=== PATIENT | female | born 1990 | race Caucasian/White ===

== ENCOUNTER 2016-08-08 08:48 | Outpatient (CLI) | payer MEDICAID ==
--- NOTE | 2016-08-08 09:38 | Ultrasound Report ---
ULTRASOUND ABDOMEN LIMITED INDICATION: with right upper quadrant pain. COMPARISON: None similar at this institution. FINDINGS: Right upper quadrant ultrasound suggests normal hepatic contours with slight diffuse nonspecific coarsening. No focal suspicious lesions or biliary dilatation. Small non-shadowing echogenicities near the gallbladder neck measuring up to 3 mm, possibly polyps versus small stones. Mild gallbladder sludge. Gallbladder wall thickness is 2.4 mm. No pericholecystic fluid or positive sonographic Villeda's sign. Common bile duct is 3 mm. Visualized pancreas, IVC and aorta within normal limits. Nonhydronephrotic right kidney, though with top normal cortical echogenicity. Right kidney grossly 9.6 x 4.6 x 5.1 cm with cortical thickness of 1.7 cm, though its lower pole partly obscured due to bowel gas. CONCLUSION: No acute right upper quadrant sonographic abnormality, though mild gallbladder sludge and small polyps or gallstones, slightly coarse liver and top normal right renal cortical echogenicity noted, as described. Please correlate. Thank you for the opportunity to participate in this patient's care.
== END 2016-08-08 08:49 | disposition home or self-care (01) ==
LOC: US 08:48
PROVIDERS: ATTEND Obstetrics & Gynecology
DX: O21.9 Vomiting of pregnancy, unspecified (principal); O99.613 Diseases of the digestive system complicating pregnancy, third trimester; K80.20 Calculus of gallbladder without cholecystitis without obstruction; O26.893 Other specified pregnancy related conditions, third trimester; M79.604 Pain in right leg; R10.11 Right upper quadrant pain; K82.8 Other specified diseases of gallbladder; Z3A.37 37 weeks gestation of pregnancy
CPT/HCPCS: 76705

== ENCOUNTER 2016-08-08 10:17 | Outpatient (CLI) | payer MEDICAID ==
[2016-08-08 11:51] VITALS: BP 100/72
--- NOTE | 2016-08-08 14:21 | Ultrasound Report ---
BIOPHYSICAL PROFILE: INDICATION: Decreased movement. COMPARISON: None similar. TECHNIQUE: Transabdominal ultrasound with Doppler interrogation. 2 - breathing movements 2 - movements 2 - posture and tone 2 - Qualitative amniotic fluid volume 8 - TOTAL SCORE OF POSSIBLE 8 Heart Rate (bpm) 140
== END 2016-08-08 12:34 | disposition home or self-care (01) ==
LOC: TRG 10:17
PROVIDERS: ATTEND Obstetrics & Gynecology
DX: O36.8130 Decreased fetal movements, third trimester, not applicable or unspecified (principal); O47.1 False labor at or after 37 completed weeks of gestation; Z3A.37 37 weeks gestation of pregnancy
CPT/HCPCS: 59025; 76819

== ENCOUNTER 2016-08-12 21:11 | Inpatient (IN) | payer MEDICAID ==
[2016-08-12] MEDS ORDERED: XYLOCAINE 2% INFILTRATI ONE ×2 (21:26→22:50)
[2016-08-12] MEDS ORDERED: PITOCin/NS 20 UNIT/1000ML DRIP 20,000 MILLIUNITS/1,000 ML BAG IV ONE (21:26)
[2016-08-12] MEDS ORDERED: LACTATED RINGERS 1,000 ML ONE (21:26)
[2016-08-12] MEDS ORDERED: PITOCin/NS 30 UNIT/500ML 30,000 MILLIUNITS/500 ML BAG IV ONE (22:01)
[2016-08-12] MEDS ORDERED: SUBLIMAZE ONE (22:15)
[2016-08-12] MEDS ORDERED: SUBLIMAZE IV ONE (22:17)
[2016-08-12] MEDS ORDERED: NARCAN 0.4 MG/1 ML IV PRN (22:50)
[2016-08-12] MEDS ORDERED: MINERAL OIL PO PRN (22:50)
[2016-08-12] MEDS ORDERED: BRETHINE IVP PRN (22:50)
[2016-08-12] MEDS ORDERED: ePHEDrine SULFATE IV PRN (22:50)
[2016-08-12] MEDS ORDERED: ZOFRAN IV PRN (22:50)
[2016-08-12] MEDS ORDERED: BRETHINE SUB-Q PRN (22:50)
--- NOTE | 2016-08-12 22:57 | History and Physical Report ---
History of Present Illness Date of examination: 08/12/16 Date of admission: 08/12/16 21:22 Chief complaint: contractions, leakage of fluid, vaginal bleeding History of present illness: Pt is a 25 year old female primigravida ELIANE 08/27/16 at 37w6d who presents with contractions since 11 am, rupture of membranes at 2030 pm and vaginal bleeding. Upon entry into triage, she was noted to be completely dilated. She has had care at [facility] since transfer into care at 24 wks complicated by gallbladder sludge with nausea and vomiting, constipation, and generalized anxiety. Her GBS status is negative. Past History Past Medical History: other (Glaucoma ) Past Surgical History: no surgical history Family/Genetic History: diabetes, hypertension Social history: no significant social history, - Obstetrical History Expected Date of Delivery: 08/27/16 Actual Gestation: 37 Week(s) 6 Day(s) : 1 Medications and Allergies Allergies Allergy/AdvReac Type Severity Reaction Status Date / Time No Known Allergies Allergy Verified 08/08/16 10:32 Home Medications Medication Instructions Recorded Confirmed Last Taken Type Doxylamine/Pyridoxine HCl 1 each PO DAILY 08/08/16 08/08/16 08/08/16 00:00 History [Diclegis Dr 10-10 mg Tablet] Ferrous Sulfate [Ferrous Sulfate] 1 tab PO BID 08/08/16 08/08/16 08/07/16 14:00 History Pnv with Ca,No.72/Iron/FA [Pnv 1 tab PO DAILY 08/08/16 08/08/16 08/07/16 14:00 History Plus Multivit Tab] Sennosides/Docusate [Senokot S] 1 tab PO DAILY 08/08/16 08/08/16 08/07/16 14:00 History 1 Active Meds: Active Medications Lactated Ringer's (Lactated Ringers) 1,000 mls @ 125 mls/hr IV DIRECT ABY Oxytocin/Sodium Chloride (Pitocin/Ns 20 Unit/1000ml Drip) 20 units in 1,000 mls @ 0 mls/hr IV DIRECT ABY PRN Reason: As Directed Oxytocin/Sodium Chloride (Pitocin/Ns 30 Unit/500ml) 30 units in 500 mls @ 6 mls /hr IV TITR ABY PRN Reason: Protocol Review of Systems All systems: negative - Vital Signs Vital signs: Vital Signs Pulse BP Pulse Ox 92 H 114/78 99 08/12/16 21:29 08/12/16 21:29 08/12/16 21:29 Temp Pulse Resp BP Pulse Ox 96 H 87/44 98 08/12/16 22:28 08/12/16 22:28 08/12/16 22:14 - Physical Exam Breasts: Positive: deferred Cardiovascular: Regular rate Lungs: Positive: Clear to auscultation Abdomen: Positive: soft (gravid ) Uterus: Positive: enlarged (gravid ) Extremities: Positive: normal - Obstetrical FHR: category 2 Uterine Contraction Monitor Mode: External Cervical Dilatation: 10 Cervical Effacement Percentage: 100 station: +1 Uterine Contraction Pattern: Irregular Uterine Tone Measurement Phase: Resting Uterine Contraction Intensity: Strong/Firm Results All other labs normal. Assessment and Plan A: IUP at 37w6d Second stage labor Thick meconium GBS negative P: Admit to labor and delivery. Routine intrapartum care. Anticipate vaginal delivery.
[2016-08-12] MEDS ORDERED: PITOCin/NS 30 UNIT/500ML 30 UNITS/500 ML BAG IV SCH ×2 (23:00)
[2016-08-12] MEDS ORDERED: PITOCin/NS 20 UNIT/1000ML DRIP 20 UNITS/1,000 ML BAG IV SCH ×2 (23:00)
[2016-08-12] MEDS ORDERED: LACTATED RINGERS 1,000 ML IV SCH ×2 (23:00)
--- NOTE | 2016-08-12 23:04 | Procedure Note ---
OB Delivery Note - Delivery Date of Delivery: 08/12/16 Surgeon: HENRIQUE LO Estimated blood loss: other (400 mL) - Vaginal Delivery presentation: vertex Delivery position: OA Intrapartum events: PROM->1hr before delivery, meconium, mult.variable deceleratio Delivery induction: none Delivery augmentation: pitocin Delivery monitor: external FHT, external uterine Route of delivery: vacuum extraction Indicators for instrumentation: nonreassuring FHR tracing Delivery placenta: spontaneous Delivery cord: nuchal cord (loose), 3 umbilical vessels Episiotomy: none Delivery laceration: 2nd degree, other (bilateral periurethral ) Delivery repair: vicryl Anesthesia: local, intravenous Delivery comments: Pt progressed to complete/complete/+3 station and commenced pushing. FHTs were in the 80s with poor maternal pushing efforts. head position was noted to be NORRIS and the head was visible between the labia. Kiwi vacuum was used with three pulls, two pop offs to deliver the head then the vacuum was disengaged. Loose nuchal cord was reduced. Shoulders and body delivered easily. placed on maternal abdomen. Cord clamped and cut and handed to respiratory staff in attendance for meconium. Cord blood collected. Placenta delivered spontaneously (3VC, intact). Vaginal and perineum explored. A second degree perineal laceration and bilateral periurethral lacerations were repaired with 2-0 and 3-0 Vicryl respectively with red rubber catheter in the urethra. EBL 400 mL. - A at 1 minute: 8 at 5 minutes: 9 Infant Gender: Male (2585g (5lb 11oz))
[2016-08-12 23:28] LABS: Hematocrit 38.9 % (30.3-42.9); Mean Corpuscular HGB Conc 31 % (30-34); Mean Corpuscular Volume 71 fl (79-97); Platelet Count 276 K/mm3 (140-440); Red Blood Count 5.47 M/mm3 (3.65-5.03); Red Cell Distribution Width 14.8 % (13.2-15.2)
[2016-08-12 23:45] LABS: Mean Corpuscular Hemoglobin 22 pg (28-32); White Blood Count 21.2 K/mm3 (4.5-11.0)
[2016-08-13] MEDS ORDERED: PITOCin/NS 20 UNIT/1000ML DRIP 20 UNITS/1,000 ML BAG IV SCH (00:53)
[2016-08-13] MEDS ORDERED: PHENERGAN PR PRN (00:53)
[2016-08-13] MEDS ORDERED: BENADRYL PO PRN (00:53)
[2016-08-13] MEDS ORDERED: LANSINOH TP PRN (00:53)
[2016-08-13] MEDS ORDERED: ZOFRAN IV PRN (00:53)
[2016-08-13] MEDS ORDERED: SODIUM CHLORIDE FLUSH SYRINGE 10 ML IV NR (00:53)
[2016-08-13] MEDS ORDERED: PHENERGAN PO PRN (00:53)
[2016-08-13] MEDS ORDERED: TYLENOL PO PRN (00:53)
[2016-08-13] MEDS ORDERED: MILK OF MAGNESIA PO PRN (00:53)
[2016-08-13] MEDS ORDERED: DULCOLAX PR PRN (00:53)
[2016-08-13] MEDS: DERMOPLAST TP PRN ×2 (01:05→18:15)
[2016-08-13] MEDS: TUCKS PAD TP PRN ×2 (01:05→18:15)
[2016-08-13] MEDS: MOTRIN PO SCH ×5 (01:06→23:09)
[2016-08-13] MEDS ORDERED: BOOSTRIX IM ONE (06:00)
[2016-08-13] MEDS ORDERED: M-M-R II VACCINE SUB-Q ONE (06:00)
--- NOTE | 2016-08-13 10:49 | Progress Note ---
Assessment and Plan A: PPD#1 s/p at term P: Routine care. Anticipate discharge tomorrow with follow up in [address] Loyola. Subjective - Subjective Date of service: 08/13/16 Principal diagnosis: s/p at term Interval history: No overnight complaints. Pt anxious about having a bowel movement given her perineal tear. Reassurance given. Patient reports: appetite normal, voiding normally, pain well controlled, ambulating normally, no nauseated : doing well Objective - Vital Signs Latest vital signs: Vital Signs Temp Pulse Pulse Resp BP BP Pulse Ox 08/13/16 09:00 98.3 F 73 18 100/61 08/13/16 04:30 98.6 F 76 16 99/77 08/13/16 00:30 98.6 F 78 16 98/75 08/12/16 23:56 83 101/64 08/12/16 23:28 84 124/69 08/12/16 23:13 93 H 111/63 08/12/16 23:01 88 108/62 08/12/16 22:59 89 107/62 08/12/16 22:58 98.9 F 85 20 100/58 100/58 08/12/16 22:28 96 H 87/44 08/12/16 22:14 89 98 08/12/16 22:13 95 H 108/56 08/12/16 22:09 116 H 100 08/12/16 22:04 88 99 08/12/16 21:59 97 H 99 08/12/16 21:54 85 99 08/12/16 21:49 76 99 08/12/16 21:44 75 96 08/12/16 21:39 80 100 08/12/16 21:34 77 99 08/12/16 21:29 92 H 114/78 99 Intake and Output 08/12/16 08/13/16 08/13/16 22:59 06:59 14:59 Intake Total 1225 240 Output Total 400 Balance 825 240 Intake: IV 125 PITOCin/NS 20 UNIT/1000ML 125 DRIP 20 units In 1,000 ml @ 125 mls/hr IV DIRECT ABY Rx#:[id number] Oral 400 240 Intake, Free Water 700 Output: Urine 400 Void 400 Other: Total, Intake Amount 400 240 Total, Output Amount 400 # Voids Void 1 1 Weight 77.111 kg Estimated Blood Loss 400 - Exam Breasts: Present: deferred Cardiovascular: Present: Regular rate Lungs: Present: Clear to auscultation Abdomen: Present: soft Uterus: Present: fundal height below umbilicus Extremities: Present: normal - Labs Labs: Abnormal lab results 08/12/16 Range/Units 21:40 WBC 21.2 H (4.5-11.0) K/mm3 RBC 5.47 H (3.65-5.03) M/mm3 MCV 71 L (79-97) fl MCH 22 L (28-32) pg
--- NOTE | 2016-08-13 10:50 | Discharge Summary ---
Providers - Providers Date of Admission: 08/12/16 21:22 Date of discharge: 08/14/16 Attending physician: HENRIQUE LOYOLA 08/13/16 00:53 Consult to Acid Maker [CONS] Routine Reason For Exam: assistance with , SNS Primary care physician: HENRIQUE LOYOLA Hospitalization Reason for admission: active labor Delivery: vacuum extraction Procedure details: Please see delivery note. Episiotomy: none Laceration: 2nd degree, other (bilateral periurethral ) Other procedures: none complications: none Discharge diagnosis: IUP at term delivered [place] baby: male Hospital course: Patient underwent a vacuum extraction which she tolerated well. Her course uncomplicated and she met discharge criteria on day #2. She will follow up in the office with Dr. Loyola in 2 weeks. Condition at discharge: Stable Disposition: DISCHARGED TO HOME OR SELFCARE - Discharge Diagnoses (1) Term of male Status: Acute Plan - Discharge Medications Prescriptions: Docusate Sodium [Colace] 100 mg PO BID PRN #60 capsule PRN Reason: Constipation HYDROcodone/APAP 5-325 [[place] 5/325] 1 each PO Q6HR PRN #40 tablet PRN Reason: Pain Ibuprofen [Motrin] 600 mg PO Q6H PRN #30 tablet PRN Reason: Pain Vit-Fe Fumar-FA [ Vitamin] 1 tab PO QDAY #30 tablet - Provider Discharge Summary Activity: routine, no sex for 6 weeks, no heavy lifting 4 weeks, no strenuous exercise Diet: routine Instructions: routine Additional instructions: [] Smoking cessation referral if applicable(refer to patient education folder for contact #) [] Refer to [facility]'s [facility] Booklet Call your doctor immediately for: * Fever > 100.5 * Heavy vaginal bleeding ( >1 pad per hour) * Severe persistent headache * Shortness of breath * Reddened, hot, painful area to leg or breast * Drainage or odor from incision. * Keep incision clean and dry at all times and follow doctor's instructions regarding bathing/showering - Follow up plan Follow up: HENRIQUE LOYOLA MD [Primary Care Provider] - 08/29/16 ( exam )
[2016-08-13 10:56] LABS: Hemoglobin 9.9 gm/dl (10.1-14.3)
[2016-08-13] MEDS: PRENATAL VITAMIN PO SCH (11:35)
[2016-08-13] MEDS: FEOSOL PO SCH ×2 (11:35→23:10)
[2016-08-13] MEDS: COLACE PO SCH ×2 (13:06→23:10)
[2016-08-13] MEDS: PERCOCET 5/325 PO PRN ×2 (13:06→18:35)
[2016-08-14] MEDS: MOTRIN PO SCH ×2 (05:25→13:06)
[2016-08-14] MEDS: PERCOCET 5/325 PO PRN (09:40)
[2016-08-14] MEDS: PRENATAL VITAMIN PO SCH (09:42)
[2016-08-14] MEDS: COLACE PO SCH (09:42)
[2016-08-14] MEDS: FEOSOL PO SCH (09:43)
[2016-08-14] MEDS: TUCKS PAD TP PRN (14:13)
[2016-08-14] MEDS: DERMOPLAST TP PRN (14:22)
[2016-08-14 15:45] VITALS: BP 93/59
== END 2016-08-14 15:40 | disposition home or self-care (01) | DRG 775 ==
LOC: TRG 21:11 → LD 21:22 → OB 08-13 00:25
PROVIDERS: ADMIT Obstetrics & Gynecology; ATTEND Obstetrics & Gynecology
PROC: 10D07Z6 Extraction of Products of Conception, Vacuum, Via Natural or Artificial Opening (ICD-10-PCS; principal; 2016-08-12)
PROC: 0KQM0ZZ Repair Perineum Muscle, Open Approach (ICD-10-PCS; 2016-08-12)
DX: O77.0 Labor and delivery complicated by meconium in amniotic fluid (principal); O70.1 Second degree perineal laceration during delivery; Z82.49 Family history of ischemic heart disease and other diseases of the circulatory system; Z83.3 Family history of diabetes mellitus; O69.81X0 Labor and delivery complicated by cord around neck, without compression, not applicable or unspecified; O76 Abnormality in fetal heart rate and rhythm complicating labor and delivery; Z3A.37 37 weeks gestation of pregnancy; Z37.0 Single live birth; O99.340 Other mental disorders complicating pregnancy, unspecified trimester; O21.9 Vomiting of pregnancy, unspecified; F41.9 Anxiety disorder, unspecified
CPT/HCPCS: 36415; 59025; 76705; 76819; 85014; 85018; 85027; 86850; 86900; 86901; 90471; 90715; A6250; J2590; J3010; J7120

== ENCOUNTER 2018-01-12 12:30 | Emergency (ER) | payer MEDICAID ==
[2018-01-12 13:12] VITALS: BP 98/61
== END 2018-01-12 16:15 | disposition left against medical advice (07) ==
LOC: ED 12:30
DX: M54.2 Cervicalgia (principal); Z53.21 Procedure and treatment not carried out due to patient leaving prior to being seen by health care provider

== ENCOUNTER 2018-07-19 17:29 | Emergency (ER) | payer MEDICAID, OTHER ==
--- NOTE | 2018-07-19 17:49 | Emergency Department Report ---
Blank Doc - Documentation Documentation: This is a 27-year-old that is about 4 weeks presents with nausea and vomiting. Denies any vaginal bleeding or pelvic/abdominal pain. Denies any other symptoms or complains, This initial assessment/diagnostic orders/clinical plan/treatment(s) is/are subject to change based on patient's health status, clinical progression and re- assessment by fellow clinical providers in the ED. Further treatment and workup at subsequent clinical providers discretion. Patient/guardians urged not to elope from the ED as their condition may be serious if not clinically assessed and managed. Initial orders include: 1- Patient sent to [facility] for further evaluation and treatment 2-labs
[2018-07-19 18:41] LABS: Basophils % (Auto) 0.3 % (0.0-1.8); Eosinophils # (Auto) 0.1 K/mm3 (0.0-0.4); Eosinophils % (Auto) 0.4 % (0.0-4.3); Hematocrit 39.2 % (30.3-42.9); Hemoglobin 12.3 gm/dl (10.1-14.3); Lymphocytes # (Auto) 2.1 K/mm3 (1.2-5.4); Lymphocytes % (Auto) 14.9 % (13.4-35.0); Mean Corpuscular HGB Conc 31 % (30-34); Mean Corpuscular Volume 71 fl (79-97); Monocytes # (Auto) 0.8 K/mm3 (0.0-0.8); Monocytes % (Auto) 5.9 % (0.0-7.3); Platelet Count 337 K/mm3 (140-440); Red Blood Count 5.51 M/mm3 (3.65-5.03); Red Cell Distribution Width 14.4 % (13.2-15.2)
[2018-07-19 19:16] LABS: BUN/Creatinine Ratio 20; Blood Urea Nitrogen 8 mg/dL (7-17); Calcium 9.7 mg/dL (8.4-10.2); Hemolysis Index 0
[2018-07-19] MEDS ORDERED: NACL 0.9% 1000 ML 1,000 ML IV ONE ×2 (20:58→23:35)
[2018-07-19] MEDS ORDERED: REGLAN IV ONE (20:59)
[2018-07-19] MEDS ORDERED: BENADRYL IV ONE (20:59)
[2018-07-19] MEDS ORDERED: ZOFRAN IV STA (23:06)
[2018-07-19] MEDS: VITAMIN B-6 PO SCH (23:50)
[2018-07-20 00:15] LABS: Bilirubin,Urine NEG (Negative); Blood,Urine MOD (Negative); Mucus,Urine 3+ /HPF
[2018-07-20 00:17] LABS: Color,Urine Dark Yellow (Yellow)
[2018-07-20 00:19] LABS: HCG Qualitative,Urine Positive (Negative)
[2018-07-20] MEDS: VITAMIN B-6 PO SCH (01:15)
--- NOTE | 2018-07-20 02:17 | Emergency Department Report ---
ED General Adult HPI - General Chief complaint: Nausea/Vomiting/Diarrhea Stated complaint: VOMIT/NAUSEA Time Seen by Provider: 07/19/18 17:48 Source: patient Mode of arrival: Ambulatory Limitations: No Limitations - History of Present Illness Initial comments: 27-year-old female 4 weeks presents emergency department complaining of a four-day history of non-improving, nausea, vomiting, associated with some occasional crampy sensation to that. No fever, chills, sweats, chest pain, palpitations, shortness of breath or dysuria. She reports no significant past medical history is taken no significant medications and denies any trauma. Location: mouth Radiation: non-radiation Severity scale (0 -10): 6 Improves with: none, immobilization Associated Symptoms: denies: chest pain, cough, diaphoresis, loss of appetite, malaise, nausea/vomiting, shortness of breath, syncope - Related Data Home Medications Medication Instructions Recorded Confirmed Last Taken Doxylamine Succinate/Vit B6 1 each PO DAILY 08/08/16 08/13/16 08/08/16 00:00 [Jill Dr 10-10 mg Tablet] Ferrous Sulfate 1 tab PO BID 08/08/16 08/13/16 08/12/16 Pnv,Calcium 72/Iron/Folic Acid 1 tab PO DAILY 08/08/16 08/13/16 08/12/16 [Pnv Plus Multivit Tab] Sennosides/Docusate [Senokot S] 1 tab PO DAILY 08/08/16 08/13/16 08/12/16 Previous Rx's Medication Instructions Recorded Last Taken Type Docusate Sodium [Colace] 100 mg PO BID PRN #60 capsule 08/13/16 Unknown Rx HYDROcodone/APAP 5-325 [[place] 1 each PO Q6HR PRN #40 tablet 08/13/16 Unknown Rx 5/325] Ibuprofen [Motrin] 600 mg PO Q6H PRN #30 tablet 08/13/16 Unknown Rx Vit-Fe Fumar-FA [ 1 tab PO QDAY #30 tablet 08/13/16 Unknown Rx Vitamin] Ferrous Sulfate [Feosol 325 MG tab] 325 mg PO BID #60 tablet 08/14/16 Unknown Rx Dicyclomine [Bentyl] 10 mg PO QID PRN #40 capsule 02/05/18 Unknown Rx Naproxen [Naprosyn TAB] 500 mg PO BID PRN #30 tablet 02/05/18 Unknown Rx Doxylamine Succinate/Vit B6 1 each PO BID PRN #20 tablet. 07/20/18 Unknown Rx [Jill Roche 10-10 mg Tablet] Allergies Allergy/AdvReac Type Severity Reaction Status Date / Time No Known Allergies Allergy Verified 01/12/18 13:09 ED Review of Systems ROS: Stated complaint: VOMIT/NAUSEA Other details as noted in HPI Constitutional: denies: chills, fever Eyes: denies: eye pain, eye discharge, vision change ENT: denies: ear pain, throat pain Respiratory: denies: cough, shortness of breath, wheezing Cardiovascular: denies: chest pain, palpitations Endocrine: no symptoms reported Gastrointestinal: nausea, vomiting. denies: abdominal pain, diarrhea, constipation, hematemesis Genitourinary: denies: urgency, dysuria, hematuria, discharge, dyspareunia Musculoskeletal: denies: back pain, joint swelling, arthralgia Skin: denies: rash, lesions Neurological: denies: headache, weakness, paresthesias Psychiatric: denies: anxiety, depression Hematological/Lymphatic: denies: easy bleeding, easy bruising ED Past Medical Hx - Past Medical History Previous Medical History?: No Hx Hypertension: No Hx Diabetes: No Hx Deep Vein Thrombosis: No Hx Renal Disease: No Hx Sickle Cell Disease: No Hx Seizures: No Hx Asthma: No Hx COPD: No Hx HIV: No - Surgical History Past Surgical History?: No - Social History Smoking Status: Never Smoker Substance Use Type: None - Medications Home Medications: Home Medications Medication Instructions Recorded Confirmed Last Taken Type Doxylamine Succinate/Vit B6 1 each PO DAILY 08/08/16 08/13/16 08/08/16 00:00 History [Jill Roche 10-10 mg Tablet] Ferrous Sulfate 1 tab PO BID 08/08/16 08/13/16 08/12/16 History Pnv,Calcium 72/Iron/Folic Acid 1 tab PO DAILY 08/08/16 08/13/16 08/12/16 History [Pnv Plus Multivit Tab] Sennosides/Docusate [Senokot S] 1 tab PO DAILY 08/08/16 08/13/16 08/12/16 History Docusate Sodium [Colace] 100 mg PO BID PRN #60 capsule 08/13/16 Unknown Rx HYDROcodone/APAP 5-325 [[place] 1 each PO Q6HR PRN #40 tablet 08/13/16 Unknown Rx 5/325] Ibuprofen [Motrin] 600 mg PO Q6H PRN #30 tablet 08/13/16 Unknown Rx Vit-Fe Fumar-FA [ 1 tab PO QDAY #30 tablet 08/13/16 Unknown Rx Vitamin] Ferrous Sulfate [Feosol 325 MG tab] 325 mg PO BID #60 tablet 08/14/16 Unknown Rx Dicyclomine [Bentyl] 10 mg PO QID PRN #40 capsule 02/05/18 Unknown Rx Naproxen [Naprosyn TAB] 500 mg PO BID PRN #30 tablet 02/05/18 Unknown Rx Doxylamine Succinate/Vit B6 1 each PO BID PRN #20 tablet. 07/20/18 Unknown Rx [Dicmaribelginuno Dr 10-10 mg Tablet] ED Physical Exam - General Limitations: No Limitations General appearance: alert, in no apparent distress - Head Head exam: Present: atraumatic, normocephalic - Eye Eye exam: Present: normal appearance, PERRL, EOMI Pupils: Present: normal accommodation - ENT ENT exam: Present: normal exam, mucous membranes moist - Neck Neck exam: Present: normal inspection, full ROM - Respiratory Respiratory exam: Present: normal lung sounds bilaterally. Absent: respiratory distress, rales, stridor - Cardiovascular Cardiovascular Exam: Present: regular rate, normal rhythm. Absent: systolic murmur, diastolic murmur, rubs, gallop - GI/Abdominal GI/Abdominal exam: Present: soft, normal bowel sounds - External exam: Present: normal external exam Speculum exam: Present: vaginal discharge Bi-manual exam: Present: normal bi-manual exam, other (charge nurse, maribell chaperoned during The pelvic examination) - Extremities Exam Extremities exam: Present: normal inspection, full ROM, normal capillary refill - Back Exam Back exam: Present: normal inspection - Neurological Exam Neurological exam: Present: alert, oriented X3 - Psychiatric Psychiatric exam: Present: normal affect, normal mood - Skin Skin exam: Present: warm, dry, intact, normal color. Absent: rash ED Course Vital Signs 07/19/18 07/19/18 17:49 22:28 Temperature 98.2 F 98.4 F Pulse Rate 73 80 Respiratory 19 20 Rate Blood Pressure 125/77 Blood Pressure 98/54 [Right] O2 Sat by Pulse 99 100 Oximetry ED Medical Decision Making - Lab Data Result diagrams: 07/19/18 18:28 07/19/18 18:28 - Medical Decision Making 27-year-old female with hyperemesis gravidarum responded very well to the fluids and medications. Advised of the need to follow with [facility] for definitive man agement and treatment alternatives. GC still pending. Wet prep Critical care attestation.: If time is entered above; I have spent that time in minutes in the direct care of this critically ill patient, excluding procedure time. ED Disposition Clinical Impression: Hyperemesis, Vaginal discharge Disposition: - TO HOME OR SELFCARE Is pt being admited?: No Does the pt Need Aspirin: No Condition: Stable Prescriptions: Doxylamine Succinate/Vit B6 [Jill Roche 10-10 mg Tablet] 1 each PO BID PRN #20 tablet. PRN Reason: Nausea And Vomiting Referrals: CHIKIS ODELL MD [Primary Care Provider] - 3-5 Days
[2018-07-20 03:24] VITALS: BP 104/68
== END 2018-07-20 03:22 | disposition home or self-care (01) ==
LOC: ED 17:29
DX: O21.0 Mild hyperemesis gravidarum (principal); Z3A.01 Less than 8 weeks gestation of pregnancy
CPT/HCPCS: 36415; 80048; 81001; 81025; 85025; 87210; 87591; 96361; 96374; 96375; 99284; J1200; J2405; J2765; J7030

== ENCOUNTER 2018-08-25 16:08 | Emergency (ER) | payer MEDICAID ==
--- NOTE | 2018-08-25 16:25 | Emergency Department Report ---
Blank Doc - Documentation Documentation: 27 y o female presents to ED at aprox 12 weeks reveives pnc at Dr Loyola office hx of Hyperemesis plan: labs, ua, IVF, zofran iv zofran outpatient [facility] eval
[2018-08-25 16:51] LABS: Basophils % (Auto) 0.3 % (0.0-1.8); Eosinophils # (Auto) 0.2 K/mm3 (0.0-0.4); Eosinophils % (Auto) 1.8 % (0.0-4.3); Hematocrit 36.2 % (30.3-42.9); Hemoglobin 11.5 gm/dl (10.1-14.3); Lymphocytes # (Auto) 2.4 K/mm3 (1.2-5.4); Lymphocytes % (Auto) 18.2 % (13.4-35.0); Mean Corpuscular HGB Conc 32 % (30-34); Monocytes % (Auto) 7.8 % (0.0-7.3); Platelet Count 301 K/mm3 (140-440); Red Blood Count 5.19 M/mm3 (3.65-5.03); Red Cell Distribution Width 13.8 % (13.2-15.2)
[2018-08-25 16:59] LABS: Mean Corpuscular Volume 70 fl (79-97)
[2018-08-25 17:04] LABS: BUN/Creatinine Ratio 13; Blood Urea Nitrogen 4 mg/dL (7-17); Calcium 9.3 mg/dL (8.4-10.2); Hemolysis Index 0
[2018-08-25] MEDS ORDERED: BENTYL IM ONE (20:09)
[2018-08-25] MEDS ORDERED: ZOFRAN IV ONE ×2 (20:09→23:44)
[2018-08-25] MEDS ORDERED: NACL 0.9% 1000 ML 1,000 ML IV ONE ×2 (20:09→23:43)
[2018-08-25 21:56] VITALS: BP 106/68
--- NOTE | 2018-08-25 22:02 | Ultrasound Report ---
PROCEDURE: Limited obstetrical ultrasound. TECHNIQUE: Real-time limited sonographic examination was performed for evaluation of each fetus with image documentation (1 or more fetuses). HISTORY: 12 weeks , abdominal pain. COMPARISONS: None that are applicable. FINDINGS: The uterus measures 11.7 cm x 6.3 cm x 8.7 cm. There is a single viable fetus in breech presentation. Cardiac activity is documented at 149 bpm. The crown-rump length measurement is 6.7 cm. This indicat es a menstrual age of 13 weeks 0 days. The estimated date of confinement is 03/02/2019. The placenta i s posterior in location. The right ovary appears normal in size. The left ovary is not visualized. IMPRESSION: Single viable fetus with a menstrual age of 13 weeks 0 days. This document is electronically signed by Shay Kimball MD., August 25 2018 11:00:25 PM ET
--- NOTE | 2018-08-25 22:14 | Emergency Department Report ---
ED N/V/D HPI - General Chief complaint: Nausea/Vomiting/Diarrhea Stated complaint: 12WKS /N/V/BLEEDING Time Seen by Provider: 08/25/18 16:20 Source: patient Mode of arrival: Wheelchair Limitations: No Limitations - History of Present Illness Initial comments: 27 y o female G2, P1, A0, presents to ED at aprox 12 weeks reveives pnc at Dr Lo office hx of Hyperemesis, states n/v , on reglan pump, states zofran works better, was no diclegis however medicaid will no longer pay for medication pt denies fever or chills does endorse abd cramping , pt is tolerating po intake at this time, last n/v this am, last po intake lunch today. cramping described as 4/10 there is no vaginal bleeding or spotting. complaint: nausea, vomiting, abdominal pain Onset/Timin -: week(s) Description of Vomiting: food contents Description of Diarrhea: other (none) Associated Abdominal Pain: Yes Location: diffuse Radiation: none Severity: moderate Pain Scale: 4 Quality: cramping Consistency: intermittent Improves with: none, eating Worsens with: movement Context: other (usual symptom for this patient ) Associated Symptoms: nausea/vomiting - Related Data Home Medications Medication Instructions Recorded Confirmed Last Taken Doxylamine Succinate/Vit B6 1 each PO DAILY 08/08/16 08/10/18 08/08/16 00:00 [Jill Roche 10-10 mg Tablet] Ferrous Sulfate 1 tab PO BID 08/08/16 08/10/18 08/12/16 Pnv,Calcium 72/Iron/Folic Acid 1 tab PO DAILY 08/08/16 08/10/18 08/12/16 [Pnv Plus Multivit Tab] Sennosides/Docusate [Senokot S] 1 tab PO DAILY 08/08/16 08/10/18 08/12/16 Previous Rx's Medication Instructions Recorded Last Taken Type Docusate Sodium [Colace] 100 mg PO BID PRN #60 capsule 08/13/16 Unknown Rx HYDROcodone/APAP 5-325 [[place] 1 each PO Q6HR PRN #40 tablet 08/13/16 Unknown Rx 5/325] Ibuprofen [Motrin] 600 mg PO Q6H PRN #30 tablet 08/13/16 Unknown Rx Vit-Fe Fumar-FA [ 1 tab PO QDAY #30 tablet 08/13/16 Unknown Rx Vitamin] Ferrous Sulfate [Feosol 325 MG tab] 325 mg PO BID #60 tablet 08/14/16 Unknown Rx Dicyclomine [Bentyl] 10 mg PO QID PRN #40 capsule 02/05/18 Unknown Rx Naproxen [Naprosyn TAB] 500 mg PO BID PRN #30 tablet 02/05/18 Unknown Rx Doxylamine Succinate/Vit B6 1 each PO BID PRN #20 tablet.dr 07/20/18 08/09/18 09:00 Rx [Dicyoly Dr 10-10 mg Tablet] Metoclopramide [Reglan] 10 mg PO TID 2 Days #90 tab 08/11/18 Unknown Rx Promethazine [Phenergan SUPPOS] 25 mg ID QHS PRN #15 supp.rect 08/11/18 Unknown Rx Zolpidem [Ambien] 5 mg PO QHS PRN #30 tablet 08/11/18 Unknown Rx Ondansetron [Zofran Odt] 4 mg PO Q8HR PRN #20 tab.rapdis 08/26/18 Unknown Rx Promethazine HCl [Phenergan SUPPOS] 25 mg RC Q8H PRN #10 supp.rect 08/26/18 Unknown Rx Allergies Allergy/AdvReac Type Severity Reaction Status Date / Time No Known Allergies Allergy Verified 08/25/18 16:12 ED Review of Systems ROS: Stated complaint: 12WKS /N/V/BLEEDING Other details as noted in HPI Constitutional: denies: chills, fever Eyes: denies: eye pain, eye discharge, vision change ENT: denies: ear pain, throat pain Respiratory: denies: cough, shortness of breath, wheezing Cardiovascular: denies: chest pain, palpitations Endocrine: no symptoms reported Gastrointestinal: abdominal pain, nausea, vomiting. denies: diarrhea, constipation, hematemesis, melena, hematochezia Genitourinary: denies: urgency, dysuria, frequency, hematuria, discharge, abnormal menses, dyspareunia Musculoskeletal: denies: back pain, joint swelling, arthralgia Skin: denies: rash, lesions Neurological: denies: headache, weakness, paresthesias Psychiatric: denies: anxiety, depression Hematological/Lymphatic: as per HPI ED Past Medical Hx - Past Medical History Previous Medical History?: No Hx Hypertension: No Hx Diabetes: No Hx Deep Vein Thrombosis: No Hx Renal Disease: No Hx Sickle Cell Disease: No Hx Seizures: No Hx Asthma: No Hx COPD: No Hx HIV: No - Surgical History Past Surgical History?: No - Social History Smoking Status: Never Smoker Substance Use Type: None - Medications Home Medications: Home Medications Medication Instructions Recorded Confirmed Last Taken Type Doxylamine Succinate/Vit B6 1 each PO DAILY 08/08/16 08/10/18 08/08/16 00:00 History [Jill Roche 10-10 mg Tablet] Ferrous Sulfate 1 tab PO BID 08/08/16 08/10/18 08/12/16 History Pnv,Calcium 72/Iron/Folic Acid 1 tab PO DAILY 08/08/16 08/10/18 08/12/16 History [Pnv Plus Multivit Tab] Sennosides/Docusate [Senokot S] 1 tab PO DAILY 08/08/16 08/10/18 08/12/16 Hist ory Docusate Sodium [Colace] 100 mg PO BID PRN #60 capsule 08/13/16 08/10/18 Unknown Rx HYDROcodone/APAP 5-325 [[place] 1 each PO Q6HR PRN #40 tablet 08/13/16 08/10/18 Unknown Rx 5/325] Ibuprofen [Motrin] 600 mg PO Q6H PRN #30 tablet 08/13/16 08/10/18 Unknown Rx Vit-Fe Fumar-FA [ 1 tab PO QDAY #30 tablet 08/13/16 08/10/18 Unknown Rx Vitamin] Ferrous Sulfate [Feosol 325 MG tab] 325 mg PO BID #60 tablet 08/14/16 08/10/18 Unknown Rx Dicyclomine [Bentyl] 10 mg PO QID PRN #40 capsule 02/05/18 08/10/18 Unknown Rx Naproxen [Naprosyn TAB] 500 mg PO BID PRN #30 tablet 02/05/18 08/10/18 Unknown Rx Doxylamine Succinate/Vit B6 1 each PO BID PRN #20 tablet. 07/20/18 08/10/18 08/09/18 09:00 Rx [Jill Roche 10-10 mg Tablet] Metoclopramide [Reglan] 10 mg PO TID 2 Days #90 tab 08/11/18 Unknown Rx Promethazine [Phenergan SUPPOS] 25 mg ID QHS PRN #15 supp.rect 08/11/18 Unknown Rx Zolpidem [Ambien] 5 mg PO QHS PRN #30 tablet 08/11/18 Unknown Rx Ondansetron [Zofran Odt] 4 mg PO Q8HR PRN #20 tab.rapdis 08/26/18 Unknown Rx Promethazine HCl [Phenergan SUPPOS] 25 mg RC Q8H PRN #10 supp.rect 08/26/18 Unknown Rx ED Physical Exam - General Limitations: No Limitations General appearance: alert, in no apparent distress - Head Head exam: Present: atraumatic, normocephalic - Eye Eye exam: Present: normal appearance, PERRL, EOMI Pupils: Present: normal accommodation - ENT ENT exam: Present: mucous membranes moist - Neck Neck exam: Present: normal inspection, full ROM. Absent: lymphadenopathy - Respiratory Respiratory exam: Present: normal lung sounds bilaterally, chest wall tenderness. Absent: respiratory distress, wheezes, rhonchi, stridor - Cardiovascular Cardiovascular Exam: Present: regular rate, normal rhythm, normal heart sounds. Absent: systolic murmur, diastolic murmur, rubs, gallop - GI/Abdominal GI/Abdominal exam: Present: soft, normal bowel sounds. Absent: distended, tenderness, rebound, bruit, hernia - Rectal Rectal exam: Present: deferred - Extremities Exam Extremities exam: Present: normal inspection, full ROM, normal capillary refill. Absent: tenderness, pedal edema, joint swelling - Back Exam Back exam: Present: normal inspection, full ROM. Absent: tenderness, CVA tenderness (R), CVA tenderness (L), muscle spasm, rash noted - Neurological Exam Neurological exam: Present: alert, oriented X3, CN II-XII intact, normal gait - Psychiatric Psychiatric exam: Present: normal affect, normal mood - Skin Skin exam: Present: warm, dry, intact, normal color. Absent: rash ED Course Vital Signs 08/25/18 08/25/18 16:19 21:55 Temperature 98.2 F 98.8 F Pulse Rate 92 H 81 Respiratory 16 18 Rate Blood Pressure 90/56 Blood Pressure 106/68 [Left] O2 Sat by Pulse 98 98 Oximetry ED Medical Decision Making - Lab Data Result diagrams: 08/25/18 16:32 08/25/18 16:32 Labs 08/25/18 08/25/18 08/25/18 16:32 16:32 16:32 WBC 13.2 H RBC 5.19 H Hgb 11.5 Hct 36.2 MCV 70 L MCH 22 L MCHC 32 RDW 13.8 Plt Count 301 Lymph % (Auto) 18.2 [place] % (Auto) 7.8 H Eos % (Auto) 1.8 Baso % (Auto) 0.3 Lymph # 2.4 [place] # 1.0 H Eos # 0.2 Baso # 0.0 Seg Neutrophils % 71.9 H Seg Neutrophils # 9.5 H Sodium 137 Potassium 3.9 Chloride 100.5 Carbon Dioxide 23 Anion Gap 17 BUN 4 L Creatinine 0.3 L Estimated GFR > 60 BUN/Creatinine Ratio 13 Glucose 103 H Calcium 9.3 HCG, Quant 71903 H Urine Color Urine Turbidity Urine pH Ur Specific [place] Urine Protein Urine Glucose (UA) Urine Ketones Urine Blood Urine Nitrite Urine Bilirubin Urine Urobilinogen Ur Leukocyte Esterase Urine WBC (Auto) Urine RBC (Auto) U Epithel Cells (Auto) Urine Mucus Blood Type 08/25/18 08/25/18 20:50 21:56 WBC RBC Hgb Hct MCV MCH MCHC RDW Plt Count Lymph % (Auto) [place] % (Auto) Eos % (Auto) Baso % (Auto) Lymph # [place] # Eos # Baso # Seg Neutrophils % Seg Neutrophils # Sodium Potassium Chloride Carbon Dioxide Anion Gap BUN Creatinine Estimated GFR BUN/Creatinine Ratio Glucose Calcium HCG, Quant Urine Color Yellow Urine Turbidity Slightly-cloudy Urine pH 6.0 Ur Specific [place] 1.020 Urine Protein <15 mg/dl Urine Glucose (UA) Neg Urine Ketones 80 Urine Blood Neg Urine Nitrite Neg Urine Bilirubin Neg Urine Urobilinogen 2.0 Ur Leukocyte Esterase Neg Urine WBC (Auto) 1.0 Urine RBC (Auto) 9.0 U Epithel Cells (Auto) 12.0 Urine Mucus 3+ Blood Type B POSITIVE - Radiology Data Radiology results: report reviewed, image reviewed PROCEDURE: Limited obstetrical ultrasound. TECHNIQUE: Real-time limited sonographic examination was performed for evaluation of each fetus with image documentation (1 or more fetuses). HISTORY: 12 weeks , abdominal pain. COMPARISONS: None that are applicable. FINDINGS: The uterus measures 11.7 cm x 6.3 cm x 8.7 cm. There is a single viable fetus in breech presentation. Cardiac activity is documented at 149 bpm. The crown-rump length measurement is 6.7 cm. This indicates a menstrual age of 13 weeks 0 days. The estimated date of confinement is 03/02/2019. The placenta is posterior in location. The right ovary appears normal in size. The left ovary is not visualized. IMPRESSION: Single viable fetus with a menstrual age of 13 weeks 0 days. This document is electronically signed by Shay Paiz MD., August 25 2018 1 1:00:25 PM ET Transcribed By: [facility] Dictated By: SHAY PAIZ MD Electronically Authenticated By: SHAY PAIZ MD Signed Date/Time: 08/25/182201 DD/ 11 TD/TT: 08/25/182120 - Medical Decision Making symptoms improved pt is tolerating po intake without n/v at this time, plan: dc to home with rx for zofran odt, phenergan supp. follow up with Dr Lo in 2 days return to ed if symptoms worsen, pt verbalized agreement and understanding of discharge plan. pt d/c'd to home in stable condition at this time. Critical care attestation.: If time is entered above; I have spent that time in minutes in the direct care of this critically ill patient, excluding procedure time. ED Disposition Clinical Impression: Nausea and vomiting during Disposition: DC-01 TO HOME OR SELFCARE Is pt being admited?: No Does the pt Need Aspirin: No Condition: Stable Instructions: Acute Nausea and Vomiting (ED), Dehydration (ED) Prescriptions: Promethazine HCl [Phenergan SUPPOS] 25 mg RC Q8H PRN #10 supp.rect PRN Reason: Nausea And Vomiting Ondansetron [Zofran Odt] 4 mg PO Q8HR PRN #20 tab.rapdis PRN Reason: Nausea And Vomiting Referrals: HENRIQUE LO MD [Primary Care Provider] - 3-5 Days Forms: Work/School Release Form(ED) Time of Disposition: 01:14
[2018-08-25 23:38] LABS: Bilirubin,Urine NEG (Negative); Blood,Urine NEG (Negative); Color,Urine Yellow (Yellow); Mucus,Urine 3+ /HPF; Protein,Urine <15 mg/dL mg/dL (Negative)
== END 2018-08-26 01:24 | disposition home or self-care (01) ==
LOC: ED 16:08
DX: O21.9 Vomiting of pregnancy, unspecified (principal); Z3A.12 12 weeks gestation of pregnancy
CPT/HCPCS: 36415; 76801; 80048; 81001; 84702; 85025; 86900; 86901; 96361; 96372; 96374; 96376; 99284; J0500; J2405; J7030

== ENCOUNTER 2018-08-27 16:11 | Inpatient (IN) | payer MEDICAID ==
[2018-08-27] MEDS ORDERED: ZOFRAN IV PRN (16:13)
--- NOTE | 2018-08-27 16:21 | History and Physical Report ---
History of Present Illness Date of examination: 08/27/18 Chief complaint: nausea vomiting History of present illness: Pt is a 27 year old female ELIANE [birth year] at 13w3d who presents for her second admission for hyperemesis. She reports frequent nausea, vomiting and weakness and has visited two EDs since her last admission. She had a Reglan pump when discharged previously but she reports that it stopped working. Past History Past Medical History: no pertinent history Past Surgical History: no surgical history Family/Genetic History: diabetes, hypertension - Obstetrical History Expected Date of Delivery: 03/01/19 Actual Gestation: 13 Week(s) 3 Day(s) : 2 Para: 1 Hx # Term Pregnancies: 1 Number of Pregnancies: 0 Spontaneous Abortions: 0 Induced : 0 Number of Living Children: 1 Medications and Allergies Allergies Allergy/AdvReac Type Severity Reaction Status Date / Time No Known Allergies Allergy Verified 08/25/18 16:12 Home Medications Medication Instructions Recorded Confirmed Last Taken Type Doxylamine Succinate/Vit B6 1 each PO DAILY 08/08/16 08/10/18 08/08/16 00:00 History [Diclegis Dr 10-10 mg Tablet] Ferrous Sulfate 1 tab PO BID 08/08/16 08/10/18 08/12/16 History Pnv,Calcium 72/Iron/Folic Acid 1 tab PO DAILY 08/08/16 08/10/18 08/12/16 History [Pnv Plus Multivit Tab] Sennosides/Docusate [Senokot S] 1 tab PO DAILY 08/08/16 08/10/18 08/12/16 History Docusate Sodium [Colace] 100 mg PO BID PRN #60 capsule 08/13/16 08/10/18 Unknown Rx HYDROcodone/APAP 5-325 [[place] 1 each PO Q6HR PRN #40 tablet 08/13/16 08/10/18 Unknown Rx 5/325] Ibuprofen [Motrin] 600 mg PO Q6H PRN #30 tablet 08/13/16 08/10/18 Unknown Rx Vit-Fe Fumar-FA [ 1 tab PO QDAY #30 tablet 08/13/16 08/10/18 Unknown Rx Vitamin] Ferrous Sulfate [Feosol 325 MG tab] 325 mg PO BID #60 tablet 08/14/16 08/10/18 Unknown Rx Dicyclomine [Bentyl] 10 mg PO QID PRN #40 capsule 02/05/18 08/10/18 Unknown Rx Naproxen [Naprosyn TAB] 500 mg PO BID PRN #30 tablet 02/05/18 08/10/18 Unknown Rx Doxylamine Succinate/Vit B6 1 each PO BID PRN #20 tablet. 07/20/18 08/10/18 08/09/18 09:00 Rx [Jill Roche 10-10 mg Tablet] Metoclopramide [Reglan] 10 mg PO TID 2 Days #90 tab 08/11/18 Unknown Rx Promethazine [Phenergan SUPPOS] 25 mg [place] QHS PRN #15 supp.rect 08/11/18 Unknown Rx Zolpidem [Ambien] 5 mg PO QHS PRN #30 tablet 08/11/18 Unknown Rx Ondansetron [Zofran Odt] 4 mg PO Q8HR PRN #20 tab.rapdis 08/26/18 Unknown Rx Promethazine HCl [Phenergan SUPPOS] 25 mg RC Q8H PRN #10 supp.rect 08/26/18 Unknown Rx Active Meds: Active Medications Dextrose/Lactated Ringer's (D5lr) 1,000 mls @ 500 mls/hr IV DIRECT ABY Stop: 08/28/18 18:59 Dextrose/Lactated Ringer's (D5lr) 1,000 mls @ 150 mls/hr IV DIRECT ABY Metoclopramide HCl (Reglan) 10 mg IV Q6H ABY Multivitamins/Iron/Calcium ( Vitamin) 1 each PO QDAY ABY Ondansetron HCl (Zofran) 4 mg IV Q6H PRN PRN Reason: N/V unrelieved by Reglan Promethazine HCl (Phenergan) 25 mg HI Q6H ABY Review of Systems Constitutional: fatigue, weakness Gastrointestinal: nausea, vomiting - Physical Exam Breasts: Positive: deferred Abdomen: Positive: soft Results Result Diagrams: 08/27/18 19:17 08/27/18 19:17 All other labs normal. Assessment and Plan A: IUP at 13w3d Hyperemesis P: Admit to antepartum service IV antiemetics IV fluids Closely monitor clinical status
[2018-08-27 20:05] LABS: Basophils % (Auto) 0.3 % (0.0-1.8); Eosinophils # (Auto) 0.2 K/mm3 (0.0-0.4); Eosinophils % (Auto) 2.1 % (0.0-4.3); Hematocrit 35.7 % (30.3-42.9); Hemoglobin 11.1 gm/dl (10.1-14.3); Lymphocytes # (Auto) 2.5 K/mm3 (1.2-5.4); Lymphocytes % (Auto) 21.2 % (13.4-35.0); Mean Corpuscular HGB Conc 31 % (30-34); Mean Corpuscular Volume 70 fl (79-97); Monocytes # (Auto) 1.1 K/mm3 (0.0-0.8); Platelet Count 288 K/mm3 (140-440); Red Blood Count 5.07 M/mm3 (3.65-5.03); Red Cell Distribution Width 14.1 % (13.2-15.2)
[2018-08-27 20:23] LABS: BUN/Creatinine Ratio 17; Blood Urea Nitrogen 5 mg/dL (7-17); Calcium 9.1 mg/dL (8.4-10.2); Hemolysis Index 1
[2018-08-27] MEDS: D5LR 1,000 ML IV SCH ×2 (21:22→23:22)
[2018-08-27] MEDS: REGLAN IV SCH (21:22)
[2018-08-27] MEDS: PHENERGAN PR SCH (21:25)
[2018-08-27 22:22] LABS: Bilirubin,Urine NEG (Negative); Blood,Urine NEG (Negative); Color,Urine Yellow (Yellow); Mucus,Urine 3+ /HPF
[2018-08-28] MEDS ORDERED: BENADRYL IV ONE (00:42)
[2018-08-28] MEDS: D5LR 1,000 ML IV SCH ×2 (01:30→12:49)
[2018-08-28] MEDS: REGLAN IV SCH ×2 (04:51→12:05)
[2018-08-28] MEDS: PHENERGAN PR SCH ×3 (04:52→16:53)
[2018-08-28] MEDS ORDERED: PRENATAL VITAMIN PO SCH (10:00)
--- NOTE | 2018-08-28 15:27 | Consultation ---
History of Present Illness Consult date: 08/28/18 Requesting physician: TEQUILA ROSAS Reason for consult: medical complication (Hyperemesis gravidarum) History of present illness: To: Genna Loyola From: Frank Elizabeth M.D. RE: MARLA SHERIDAN (: 88 ) Hyperemesis Gravidarum at 13 weeks Date: Tuesday, August 28, 2018 Thank you for your recent consultation of the above named patient. This is a 27 year-old para 1001 at approximately 13 weeks gestation admitted due to hyperemesis gravidarum at [facility]. Presented with N/V Hyperemesis. She has had nausea and vomiting since 7 weeks gestation. Pre- weight at 120# and now at 107# Denies fever, chills, diarrhea. Has tried Reglan prior to hospitalization. She is currently on Zofran and Lc and has had satisfactory relief. Current medication: Reglan Zofran Upon questioning today; she is without complaint. She ate a regular lunch and wishes to be discharged. PAST OB HISTORY: 2017: at term. BW: uncertain. CURRENT PRESENTATION Patient was admitted with recurrent nausea and vomiting. She had recently been treated with prescribed a Zofran and Reglan Patient has had 1 previous hospitalizations due to nausea. Patient is ABLE tolerate food presently. Past History Past Medical History: no pertinent history Past Surgical History: no surgical history Family/Genetic History: diabetes, hypertension - Obstetrical History : 2 Medications and Allergies Allergies Allergy/AdvReac Type Severity Reaction Status Date / Time No Known Allergies Allergy Verified 08/25/18 16:12 Home Medications Medication Instructions Recorded Confirmed Last Taken Type Doxylamine Succinate/Vit B6 1 each PO DAILY 08/08/16 08/10/18 08/08/16 00:00 History [Jill Roche 10-10 mg Tablet] Ferrous Sulfate 1 tab PO BID 08/08/16 08/10/18 08/12/16 History Pnv,Calcium 72/Iron/Folic Acid 1 tab PO DAILY 08/08/16 08/10/18 08/12/16 History [Pnv Plus Multivit Tab] Sennosides/Docusate [Senokot S] 1 tab PO DAILY 08/08/16 08/10/18 08/12/16 History Docusate Sodium [Colace] 100 mg PO BID PRN #60 capsule 08/13/16 08/10/18 Unknown Rx HYDROcodone/APAP 5-325 [[place] 1 each PO Q6HR PRN #40 tablet 08/13/16 08/10/18 Unknown Rx 5/325] Ibuprofen [Motrin] 600 mg PO Q6H PRN #30 tablet 08/13/16 08/10/18 Unknown Rx Vit-Fe Fumar-FA [ 1 tab PO QDAY #30 tablet 08/13/16 08/10/18 Unknown Rx Vitamin] Ferrous Sulfate [Feosol 325 MG tab] 325 mg PO BID #60 tablet 08/14/16 08/10/18 Unknown Rx Dicyclomine [Bentyl] 10 mg PO QID PRN #40 capsule 02/05/18 08/10/18 Unknown Rx Naproxen [Naprosyn TAB] 500 mg PO BID PRN #30 tablet 02/05/18 08/10/18 Unknown Rx Doxylamine Succinate/Vit B6 1 each PO BID PRN #20 tablet. 07/20/18 08/10/18 08/09/18 09:00 Rx [Jill Roche 10-10 mg Tablet] Metoclopramide [Reglan] 10 mg PO TID 2 Days #90 tab 08/11/18 Unknown Rx Promethazine [Phenergan SUPPOS] 25 mg [place] QHS PRN #15 supp.rect 08/11/18 Unknown Rx Zolpidem [Ambien] 5 mg PO QHS PRN #30 tablet 08/11/18 Unknown Rx Ondansetron [Zofran Odt] 4 mg PO Q8HR PRN #20 tab.rapdis 08/26/18 Unknown Rx Promethazine HCl [Phenergan SUPPOS] 25 mg RC Q8H PRN #10 supp.rect 08/26/18 Unknown Rx Active Meds: Active Medications Dextrose/Lactated Ringer's (D5lr) 1,000 mls @ 500 mls/hr IV DIRECT ABY Stop: 08/28/18 18:59 Last Admin: 08/27/18 23:22 Dose: 500 mls/hr Documented by: Dextrose/Lactated Ringer's (D5lr) 1,000 mls @ 150 mls/hr IV DIRECT ABY Last Admin: 08/28/18 12:49 Dose: 150 mls/hr Documented by: Metoclopramide HCl (Reglan) 10 mg IV Q6H [facility] Last Admin: 08/28/18 12:05 Dose: 10 mg Documented by: Multivitamins/Iron/Calcium ( Vitamin) 1 each PO QDAY [facility] Last Admin: 08/28/18 12:50 Dose: Not Given Documented by: Ondansetron HCl (Zofran) 4 mg IV Q6H PRN PRN Reason: N/V unrelieved by Reglan Last Admin: 08/27/18 23:24 Dose: 4 mg Documented by: Promethazine HCl (Phenergan) 25 mg [place] Q6H [facility] Last Admin: 08/28/18 12:48 Dose: Not Given Documented by: - Vital Signs Vital signs: Vital Signs Temp Pulse Resp BP Pulse Ox 97.5 F L 65 18 104/53 100 08/27/18 18:30 08/27/18 18:30 08/27/18 18:30 08/27/18 18:30 08/27/18 18:30 Temp Pulse Resp BP Pulse Ox 97.7 F 83 16 95/62 98 08/28/18 12:07 08/28/18 12:07 08/28/18 12:07 08/28/18 12:07 08/28/18 12:07 Results Result Diagrams: 08/27/18 19:17 08/27/18 19:17 Abnormal lab results 08/27/18 08/27/18 08/27/18 Range/Units 19:17 19:17 19:17 WBC 12.0 H (4.5-11.0) K/mm3 RBC 5.07 H (3.65-5.03) M/mm3 MCV 70 L (79-97) fl MCH 22 L (28-32) pg [place] % (Auto) 9.0 H (0.0-7.3) % [place] # 1.1 H (0.0-0.8) K/mm3 Seg Neutrophils # 8.1 H (1.8-7.7) K/mm3 BUN 5 L (7-17) mg/dL Creatinine 0.3 L (0.7-1.2) mg/dL TSH < 0.005 L (0.270-4.200) mlU/mL Free T4 (0.76-1.46) ng/dL 08/27/18 Range/Units 19:17 WBC (4.5-11.0) K/mm3 RBC (3.65-5.03) M/mm3 MCV (79-97) fl MCH (28-32) pg [place] % (Auto) (0.0-7.3) % [place] # (0.0-0.8) K/mm3 Seg Neutrophils # (1.8-7.7) K/mm3 BUN (7-17) mg/dL Creatinine (0.7-1.2) mg/dL TSH (0.270-4.200) mlU/mL Free T4 2.15 H (0.76-1.46) ng/dL All other labs normal. Assessment and Plan ASSESSMENT Hyperemesis gravidarum at 13 weeks gestation. RECOMMENDATION: * Agree with current management * Patient appears to be a candidate for discharge home on Reglan and Zofran. * Please contact [facility] if she wishes to go on a Zofran pump. * If patient has ongoing nausea consider PO Methylprednisolone 8-16 mg P.O. TID which we will taper over two weeks * Consider discharge home when stable. Thank you for your referral of this patient. If you have any questions, we may be reached at [phone]. Frank Elizabeth MD, FACOG
[2018-08-28 16:42] VITALS: BP 91/54
--- NOTE | 2018-08-28 17:32 | Event Note ---
Date: 08/28/18 Patient seen by HILARIO and made recommnedations. APpreciate consult. patient tolerating diet. No nausea nor vomiting. d/c home with f/u in 1 weeks. RX for reglan and zofran
== END 2018-08-28 18:10 | disposition home or self-care (01) | DRG 781 ==
LOC: 3A 16:11 → UNDOADMIN 16:11 → OB 17:39
PROVIDERS: ADMIT Obstetrics & Gynecology; ATTEND Obstetrics & Gynecology
DX: O21.0 Mild hyperemesis gravidarum (principal); Z3A.13 13 weeks gestation of pregnancy
CPT/HCPCS: 36415; 76801; 80048; 81001; 82150; 83690; 84439; 84443; 84702; 85025; 86900; 86901; 96361; 96372; 96374; 96376; G0378; J0500; J1200; J2405; J2765; J7030; J7121

== ENCOUNTER 2019-02-11 01:51 | Inpatient (IN) | payer MEDICAID ==
[2019-02-11] MEDS ORDERED: ePHEDrine SULFATE 50 MG/1 ML INJ IV PRN (02:28)
[2019-02-11] MEDS ORDERED: MINERAL OIL 30 ML ORAL LIQD PO PRN ×2 (02:28→08:50)
[2019-02-11] MEDS ORDERED: LIDOCAINE (2%) 20 MG/1 ML VIAL 20 ML MDV INFILTRATI ONE ×2 (02:28→08:54)
[2019-02-11] MEDS ORDERED: TERBUTALINE 1 MG/1 ML INJ SUB-Q PRN (02:28)
[2019-02-11] MEDS ORDERED: TERBUTALINE 1 MG/1 ML INJ IVP PRN (02:28)
[2019-02-11] MEDS ORDERED: LACTATED RINGERS 1,000 ML IV SCH (03:00)
[2019-02-11 03:05] LABS: Hematocrit 33.4 % (30.3-42.9); Hemoglobin 10.6 gm/dl (10.1-14.3); Mean Corpuscular HGB Conc 32 % (30-34); Platelet Count 306 K/mm3 (140-440); Red Blood Count 4.93 M/mm3 (3.65-5.03); Red Cell Distribution Width 15.9 % (13.2-15.2)
[2019-02-11 03:08] LABS: Mean Corpuscular Volume 68 fl (79-97)
--- NOTE | 2019-02-11 03:40 | Ultrasound Report ---
Obstetrical ultrasound. 02/11/2019. HISTORY: Evaluate TOM and weight. FINDINGS: A viable intrauterine is dated 35 weeks 0 days. Estimated weight is 5 lbs. 7 oz. heart tones are 138 bpm. The placenta is located laterally on the right. No abruption. position is cephalic. Amniotic fluid index is diminished measuring 5.9 cm. Estimated weight is 6%. Head circumference to abdominal circumference ratio is 95th percentile. IMPRESSION: 1. Diminished amniotic fluid index of 5.9 cm. 2. Estimated weight is 6%. Head circumference to abdominal circumference ratio is 95th percenti le. Signer Name: Rafa Mcghee MD Signed: 02/11/2019 3:35 AM Workstation Name: [id number]
[2019-02-11] MEDS ORDERED: OXYTOCIN DRIP 30 UNITS/500 ML BAG IV SCH (05:00)
[2019-02-11] MEDS ORDERED: LIDOCAINE 2%/EPINEPHRINE 1:100,000 VIAL (20 ML) INFILTRATI NR (09:00)
--- NOTE | 2019-02-11 09:15 | History and Physical Report ---
History of Present Illness Date of examination: 02/11/19 Date of admission: 02/11/19 02:28 Chief complaint: my water broke History of present illness: Pt is a 28 yaer old female ELIANE 03/04/19 at 37w0d presents with rupture of membranes since 0130 am. She reports irregular contractions and denies vaginal bleeding. She has had care at [facility] since 13 wks complicated by gestational diabetes, alpha thalassemia carrtier status, gallbladder sludge, GERD, hyperemsis in first trimester, and anemia on iron supplementation. She is GBS negative. Past History Past Medical History: diabetes (gestational ) Past Surgical History: no surgical history Family/Genetic History: diabetes, hypertension Social history: no significant social history, - Obstetrical History Expected Date of Delivery: 03/04/19 Actual Gestation: 37 Week(s) 0 Day(s) : 2 Para: 1 Hx # Term Pregnancies: 1 Number of Pregnancies: 0 Spontaneous Abortions: 0 Induced : 0 Number of Living Children: 1 Medications and Allergies Allergies Allergy/AdvReac Type Severity Reaction Status Date / Time No Known Allergies Allergy Verified 08/25/18 16:12 Home Medications Medication Instructions Recorded Confirmed Last Taken Type Doxylamine Succinate/Vit B6 1 each PO DAILY 08/08/16 08/10/18 08/08/16 00:00 H istory [Diclegis Dr 10-10 mg Tablet] Ferrous Sulfate 1 tab PO BID 08/08/16 08/10/18 08/12/16 History Pnv,Calcium 72/Iron/Folic Acid 1 tab PO DAILY 08/08/16 08/10/18 08/12/16 History [Pnv Plus Multivit Tab] Sennosides/Docusate [Senokot S] 1 tab PO DAILY 08/08/16 08/10/18 08/12/16 History Docusate Sodium [Colace] 100 mg PO BID PRN #60 capsule 08/13/16 08/10/18 Unknown Rx HYDROcodone/APAP 5-325 [[place] 1 each PO Q6HR PRN #40 tablet 08/13/16 08/10/18 Unknown Rx 5/325] Ibuprofen [Motrin] 600 mg PO Q6H PRN #30 tablet 08/13/16 08/10/18 Unknown Rx Vit-Fe Fumar-FA [ 1 tab PO QDAY #30 tablet 08/13/16 08/10/18 Unknown Rx Vitamin] Ferrous Sulfate [Feosol 325 MG tab] 325 mg PO BID #60 tablet 08/14/16 08/10/18 Unknown Rx Dicyclomine [Bentyl] 10 mg PO QID PRN #40 capsule 02/05/18 08/10/18 Unknown Rx Naproxen [Naprosyn TAB] 500 mg PO BID PRN #30 tablet 02/05/18 08/10/18 Unknown Rx Doxylamine Succinate/Vit B6 1 each PO BID PRN #20 tablet. 07/20/18 08/10/18 08/09/18 09:00 Rx [Jill Roche 10-10 mg Tablet] Metoclopramide [Reglan] 10 mg PO TID 2 Days #90 tab 08/11/18 Unknown Rx Promethazine [Phenergan SUPPOS] 25 mg [place] QHS PRN #15 supp.rect 08/11/18 Unknown Rx Zolpidem [Ambien] 5 mg PO QHS PRN #30 tablet 08/11/18 Unknown Rx Ondansetron [Zofran Odt] 4 mg PO Q8HR PRN #20 tab.rapdis 08/26/18 Unknown Rx Promethazine HCl [Phenergan SUPPOS] 25 mg RC Q8H PRN #10 supp.rect 08/26/18 Unknown Rx Metoclopramide [Reglan] 10 mg PO TID #30 tab 08/28/18 Unknown Rx Ondansetron (Nf) [Zofran TAB] 8 mg PO Q8HR PRN #30 tablet 08/28/18 Unknown Rx Active Meds: Active Medications Ephedrine Sulfate (Ephedrine Sulfate) 10 mg IV Q2M PRN PRN Reason: Hypotension Oxytocin/Sodium Chloride (Pitocin/Ns 20 Unit/1000ml Drip) 20 units in 1,000 mls @ 125 mls/hr IV DIRECT ABY Lactated Ringer's (Lactated Ringers) 1,000 mls @ 125 mls/hr IV DIRECT ABY Last Admin: 02/11/19 03:50 Dose: 125 mls/hr Documented by: Oxytocin/Sodium Chloride (Pitocin/Ns 30 Unit/500ml) 30 units in 500 mls @ 1 mls/hr IV TITR ABY; Protocol Ketorolac Tromethamine (Toradol) 15 mg IV ONCE ONE Stop: 02/11/19 09:11 Lidocaine/Epinephrine (Xylocaine 2%/Epi 1:100,000) 20 ml INFILTRATI ONCE NR Stop: 02/12/19 08:59 Mineral Oil (Mineral Oil) 30 ml PO QHS PRN PRN Reason: Constipation Terbutaline Sulfate ([place]thine) 0.25 mg SUB-Q ONCE PRN PRN Reason: Hyperstimulation/Hypertonicity Terbutaline Sulfate ([place]) 0.25 mg IVP ONCE PRN PRN Reason: Hyperstimulation/Hypertonicity Review of Systems All systems: negative - Vital Signs Vital signs: Vital Signs Pulse BP Pulse Ox 90 115/73 99 02/11/19 02:02 02/11/19 02:02 02/11/19 02:02 Temp Pulse Resp BP Pulse Ox 98.0 F 86 18 123/74 100 02/11/19 08:28 02/11/19 08:44 02/11/19 08:28 02/11/19 08:28 02/11/19 08:44 - Physical Exam Breasts: Positive: deferred Cardiovascular: Regular rate Lungs: Positive: Clear to auscultation Abdomen: Positive: soft (gravid ) Uterus: Positive: enlarged (gravid ) Extremities: Positive: normal - Obstetrical FHR: category 2 Uterine Contraction Monitor Mode: External Cervical Dilatation: 10 Cervical Effacement Percentage: 100 station: +2 Uterine Contraction Pattern: Regular Uterine Tone Measurement Phase: Resting Uterine Contraction Intensity: Moderate Results Result Diagrams: 02/11/19 02:44 Abnormal lab results 02/11/19 Range/Units 02:44 WBC 14.1 H (4.5-11.0) K/mm3 MCV 68 L (79-97) fl MCH 22 L (28-32) pg RDW 15.9 H (13.2-15.2) % All other labs normal. Assessment and Plan A: IUP at 37w0d SROM Second stage labor Gestational diabetes GBS negative P: Admit to labor and delivery Routine intrapartum care Anticipate
--- NOTE | 2019-02-11 09:18 | Procedure Note ---
OB Delivery Note - Delivery Date of Delivery: 02/11/19 Surgeon: HENRIQUE LO Estimated blood loss: 300cc - Vaginal Delivery presentation: vertex Delivery position: OA Intrapartum events: PROM->1hr before delivery, decreased FHT variability, mult.variable deceleratio Delivery induction: none Delivery monitor: external FHT, external uterine Route of delivery: Delivery placenta: spontaneous Delivery cord: nuchal cord (Loose, delivered through ), 3 umbilical vessels, other (Body cord x 1 ) Episiotomy: none Delivery laceration: 1st degree (hemostatic ), other (bilateral peirurethral- hemostatic ) Anesthesia: none - A at 1 minute: 8 at 5 minutes: 9 Infant Gender: Female (2430g (5lb 5.7 oz) @ 0853 am)
[2019-02-11] MEDS: OXYTOCIN 20 UNIT/1000ML DRIP 20 UNITS/1,000 ML BAG IV SCH ×2 (09:34→10:09)
[2019-02-11] MEDS ORDERED: KETOROLAC 30 MG/1 ML INJ IV ONE (10:00)
[2019-02-11] MEDS ORDERED: OXYTOCIN 20 UNIT/1000ML DRIP 20 UNITS/1,000 ML BAG IV SCH (13:58)
[2019-02-11] MEDS ORDERED: PROMETHAZINE 25 MG RECT SUPP PR PRN (13:58)
[2019-02-11] MEDS ORDERED: HYDROcodone/ACETAMINOPHEN 5-325 MG TAB PO PRN (13:58)
[2019-02-11] MEDS ORDERED: MAGNESIUM HYDROXIDE (MOM) ORAL LIQD UDC PO PRN (13:58)
[2019-02-11] MEDS ORDERED: LANOLIN/ZINC/DIMETHICONE (LANSINOH) 7 GM TP PRN ×2 (13:58)
[2019-02-11] MEDS ORDERED: ACETAMINOPHEN 325 MG TAB PO PRN (13:58)
[2019-02-11] MEDS ORDERED: PROMETHAZINE 25 MG TAB PO PRN (13:58)
[2019-02-11] MEDS ORDERED: WITCH HAZEL/ GLYCERIN PAD TP PRN (13:58)
[2019-02-11] MEDS ORDERED: diphenhydrAMINE 25 MG CAP PO PRN (13:58)
[2019-02-11] MEDS ORDERED: BENZOCAINE/MENTHOL 20/0.5% TOP SPRAY 56 GM TP PRN (13:58)
[2019-02-11] MEDS ORDERED: ONDANSETRON 4 MG/2 ML INJ IV PRN (13:58)
[2019-02-11] MEDS: IBUPROFEN 600 MG TAB PO SCH ×2 (15:28→22:24)
[2019-02-11] MEDS: FERROUS SULFATE 325 MG TAB PO SCH (15:30)
[2019-02-11 22:10] LABS: Hematocrit 32.9 % (30.3-42.9); Hemoglobin 10.2 gm/dl (10.1-14.3)
[2019-02-12] MEDS ORDERED: MEASLES, MUMPS & RUBELLA 12,500 UNIT/0.5 ML VACCINE SUB-Q ONE (06:00)
[2019-02-12] MEDS ORDERED: TETANUS,DIPH,PERTUSS(ACELL) VACCINE 0.5 ML SYRINGE IM ONE (06:00)
[2019-02-12] MEDS: IBUPROFEN 600 MG TAB PO SCH ×2 (06:02→15:37)
--- NOTE | 2019-02-12 08:57 | Progress Note ---
Assessment and Plan - Patient Problems (1) Vaginal delivery Current Visit: Yes Status: Acute Plan to address problem: patient doing well discharge home Subjective - Subjective Date of service: 02/12/19 Interval history: Patient reports lochia is improving. Experiencing uterine cramping. Patient reports: appetite normal, voiding normally, pain well controlled [place]: doing well Objective - Vital Signs Latest vital signs: Vital Signs Temp Pulse Resp BP 02/12/19 06:02 20 02/12/19 04:00 98.7 F 79 18 119/74 02/12/19 00:00 98.6 F 61 18 114/72 02/11/19 22:24 20 02/11/19 20:00 98.7 F 72 18 101/72 02/11/19 19:30 98.7 F 78 18 99/78 02/11/19 16:40 98 F 87 18 120/69 Intake and Output 02/11/19 02/12/19 02/12/19 22:59 06:59 14:59 Intake Total 420 200 Output Total 900 Balance -480 200 Intake: Oral 120 200 Intake, Free Water 300 Output: Urine 900 Void 900 Other: Total, Intake Amount 120 200 Total, Output Amount 900 # Voids Void 1 1 - Exam Uterus: Present: normal, firm
--- NOTE | 2019-02-12 08:58 | Discharge Summary ---
Providers - Providers Date of Admission: 02/11/19 02:28 Date of discharge: 02/12/19 Attending physician: TEQUILA ROSAS MD Primary care physician: TEQUILA ROSAS MD Hospitalization Reason for admission: rupture of membranes Delivery: Discharge diagnosis: IUP at term delivered baby: female Hospital course: Patient admitted at 37 weeks with +SROM. Had a . uncomplicated Condition at discharge: Good Disposition: DC-01 TO HOME OR SELFCARE - Discharge Diagnoses (1) Vaginal delivery Status: Acute Plan - Discharge Medications Prescriptions: Ibuprofen [Motrin] 800 mg PO Q8HR PRN #60 tablet PRN Reason: Pain, Mild (1-3) HYDROcodone/APAP 5-325 [[place] 5/325] 1 each PO Q6HR PRN #20 tablet PRN Reason: Pain - Provider Discharge Summary Activity: no sex for 6 weeks, no heavy lifting 4 weeks, no strenuous exercise Diet: routine Instructions: routine Additional instructions: [] Smoking cessation referral if applicable(refer to patient education folder for contact #) [] Refer to [facility] Booklet Call your doctor immediately for: * Fever > 100.5 * Heavy vaginal bleeding ( >1 pad per hour) * Severe persistent headache * Shortness of breath * Reddened, hot, painful area to leg or breast * schedule followup in 4 weeks - Follow up plan
[2019-02-12] MEDS: FERROUS SULFATE 325 MG TAB PO SCH (12:45)
[2019-02-12 17:35] VITALS: BP 94/55
== END 2019-02-12 19:20 | disposition home or self-care (01) | DRG 775 ==
LOC: TRG 01:51 → OBSVTOIN 02:28 → TRG 02:28 → LD 02:28 → OB 11:30
PROVIDERS: ADMIT Obstetrics & Gynecology; ATTEND Obstetrics & Gynecology
PROC: 10E0XZZ Delivery of Products of Conception, External Approach (ICD-10-PCS; principal; 2019-02-11)
DX: O24.429 Gestational diabetes mellitus in childbirth, unspecified control (principal); O99.62 Diseases of the digestive system complicating childbirth; O99.02 Anemia complicating childbirth; D64.9 Anemia, unspecified; O42.02 Full-term premature rupture of membranes, onset of labor within 24 hours of rupture; O76 Abnormality in fetal heart rate and rhythm complicating labor and delivery; O69.81X0 Labor and delivery complicated by cord around neck, without compression, not applicable or unspecified; O70.0 First degree perineal laceration during delivery; O71.82 Other specified trauma to perineum and vulva; K21.9 Gastro-esophageal reflux disease without esophagitis; Z3A.37 37 weeks gestation of pregnancy; Z37.0 Single live birth
CPT/HCPCS: 36415; 76816; 82962; 85014; 85018; 85027; 86850; 86900; 86901; 88307; G0378; J1885; J2590; J7120